=== PATIENT | female | born 1975 | race Caucasian/White ===

== ENCOUNTER → 2021-08-06 | Day surgery (SDC) | payer OTHER ==
[~2021-08-06] MED LIST: ACIPHEX20 MG PO; CRANBERRY200 MG PO; FENTANYL CITRATE/PF 100MCG/2 ML INJ ONE; LEVOCETIRIZINE D5 MG PO; LIDOCAINE HCL 2% LOCAL INJ 5 ML SDV VIAL INJ ONE; LISINOPRIL10 MG PO; MIDAZOLAM HCL 2 MG/2 ML VIAL ONE; PROPOFOL IV EMULSION 10 MG/ML 20 ML VIAL ONE; ZONEGRAN25 MG PO
[2021-08-06 08:55] VITALS: BP 121/81
== END | disposition home or self-care (01) ==
LOC: OR 06:52
PROVIDERS: ATTEND Internal Medicine Gastroenterology
DX: K29.50 Unspecified chronic gastritis without bleeding (principal); Z86.010 Personal history of colon polyps; K57.30 Diverticulosis of large intestine without perforation or abscess without bleeding; K21.9 Gastro-esophageal reflux disease without esophagitis; K44.9 Diaphragmatic hernia without obstruction or gangrene; K64.8 Other hemorrhoids; G47.33 Obstructive sleep apnea (adult) (pediatric); I10 Essential (primary) hypertension; E66.01 Morbid (severe) obesity due to excess calories; Z91.048 Other nonmedicinal substance allergy status; Z01.810 Encounter for preprocedural cardiovascular examination; Z01.812 Encounter for preprocedural laboratory examination; Z20.822 Contact with and (suspected) exposure to COVID-19; Z79.899 Other long term (current) drug therapy; Z68.42 Body mass index [BMI] 45.0-49.9, adult; Z87.891 Personal history of nicotine dependence
CPT/HCPCS: 43239; 45378; 81025; 93005; J2001; J2250; J2704; J3010; U0002